=== PATIENT | male | born 1935 | race Caucasian/White ===

== ENCOUNTER 2018-07-02 08:46 | Inpatient (IN) | payer OTHER, MEDICARE ==
--- OUTSIDE RECORDS SUMMARY | 2018-07-02 08:49 | XMS REPORT | Encounter Summary ---
:1935 Author Reason for Visit Medical Complaint Instructions 1. Cough cough: care instructions 2. Chill rapid flu (A+B) 3. Nasal discharge 4. Fatigue 5. Elevated blood-pressure reading without diagnosis of hypertension Discussion Note: None recorded. Plan of Care Patient Instructions Increase fluid; rest. Tylenol as needed for fever or pain. Increase exposure to moist air from humidifier or hot shower. Seek care if no improvement in 3-4 days or sooner for worsening. See care instructions Reminders Provider Appointments None recorded. Lab Rapid Flu 06/28/2018 [facility] (A+B) Referral None recorded. Procedures None recorded. Surgeries None recorded. Imaging None recorded. Medications Name Start Date Asprin Ec Low Dose 81 mg tablet,delayed release Take 1 tablet every day by oral route. Coreg 6.25 mg tablet Take 1 tablet twice a day by oral route. Lipitor 20 mg tablet Take 1 tablet every day by oral route. warfarin Medications Administered None recorded. Vitals Height Weight BMI Blood Pressure 6 ft 2 in 170 lbs 21.8 kg/m2 126/64 mm[Hg] Lab Results Date Name Specimen Result Interpretation Description Value Range Status Address Rapid Flu Influenza a negative [facility]: (A+B) [address] [place] [address] Influenza B negative [facility]: [address] [place] [address] Allergies Code Code System Name Reaction Severity Status Onset NKDA Problems Name Status Onset Date Source Hypercholesterolemia Active 06/28/2018 Procedures None recorded. Vaccine List Vaccine Type influenza, injectable, quadrivalent 12/28/2017 Social History Smoking Status Never Smoker Past Encounters 06/28/2018 Cough; Chill; Nasal Discharge; Fatigue; Elevated Blood-pressure Reading without Diagnosis of Hypertension Phuong Gonsalez [facility]-C: [id number] [place] [address], Ph. [phone] History of Present Illness Cough Reported By: Patient HPI: Location: chest. Quality: productive cough. Duration: <1 days. Severity: mild. Onset/Timing: sudden. Context: no sick contacts, no foreign travel, non-smoker; travelled from [place] yesterday (drove 12 hours). Modifying factors: OTC medication. Associated Symptoms: no wheezing, no sore throat, no vomiting, no diarrhea, no rash, no nausea, no muscle aches, no headache, shortness of breath, fatigue, fever/chills Review of Systems Basic Reported By: Patient Eyes: Eyes: no eye complaints Fypm-Gxmj-Qdsmg-Throat: Ears: no ear complaints. Nose: nose/sinus problems. Mouth/Throat: no sore throat, no bleeding gums, no mouth complaints, no teeth problems Cardiovascular: Cardiovascular: no chest pain Gastrointestinal: Gastrointestinal: no abdominal pain Musculoskeletal: Musculoskeletal: no muscle aches, no muscle weakness, no arthralgias/joint pain, no back pain Neurologic: Neurologic: no loss of consciousness, weakness, dizziness Physical Exam Adult Basic, Adult Male Complete Reported By: Patient Constitutional: General Appearance: well-nourished, well-developed. Level of Distress: mild distress. Ambulation: limited ambulation Psychiatric: Mental Status: active and alert. Orientation: to time, to place, to person Eyes: Lids and Conjunctivae: non-injected, no discharge. EOM: EOMI. Vision: acuity grossly intact Myu-Lxwv-Qnwvq-Throat: Ears: no lesions on external ear, no outer ear tenderness, EACs clear, TMs clear, TM mobility normal. Hearing: no hearing loss. Nose: no lesions on external nose, nares patent, no septal deviation, nasal passages clear, no sinus tenderness, nasal discharge--rhinorrhea. Lips, Teeth, and Gums: no mouth or lip ulcers, no bleeding gums. Oropharynx: moist mucous membranes, no erythema, no exudates, tonsils not enlarged Neck: Neck: supple, trachea midline, no masses, FROM. Lymph Nodes: no cervical LAD, no supraclavicular LAD. Thyroid: no enlargement, non-tender Lungs: Respiratory effort: no dyspnea, no tachypnea, no use of accessory muscles, no intercostal retractions. Auscultation: breath sounds normal, good air movement Cardiovascular: Heart Auscultation: RRR Musculoskeletal:: Motor Strength and Tone: normal motor strength, normal tone, normal. Joints, Bones, and Muscles: normal movement of all extremities Neurologic: Gait and Station: normal gait Skin: Inspection and palpation: no rash Back: Thoracolumbar Appearance: normal curvature Abdomen: Inspection and Palpation: soft, no guarding
--- OUTSIDE RECORDS SUMMARY | 2018-07-02 08:49 | XMS REPORT | Continuity of Care Document ---
:1935 Author Organization Interface Problems Problem Status Onset Classification Date Comments Source Date Reported Nasal discharge Diagnosis 06/28/2018 [facility] 019 Elevated Diagnosis 06/28/2018 [facility] blood-pressure reading 019 without diagnosis of hypertension Fatigue Diagnosis 06/28/2018 [facility] 019 Chill Diagnosis 06/28/2018 [facility] 019 Cough Diagnosis 06/28/2018 [facility] 019 Hypercholesterolemia Problem 06/28/2018 [facility] 019 Medications Medication Details Route Status Patient Ordering Order Source Instructions Provider Date Asprin Ec Low Asprin Ec Active [facility] Dose 81 mg Low Dose 81 tablet,delayed mg release tablet,gricelda yed release Take 1 tablet every day by oral route. carvedilol 6.25 Coreg 6.25 Active [facility] MG Oral Tablet mg tablet [Coreg] Take 1 tablet twice a day by oral route. atorvastatin 20 Lipitor 20 Active [facility] MG Oral Tablet mg tablet [Lipitor] Take 1 tablet every day by oral route. warfarin warfarin Active [facility] Allergies, Adverse Reactions, Alerts Substance Category Reaction Severity Reaction Status Date Comments Source type Reported Immunizations Immunization Date Given Site Status Last Comments Source Updated influenza, 12/28/2017 completed [facility] injectable, quadrivalent Results Order Results Value Reference Date Interpretation Comments Source Name Range Influenza A negative 06/28/ [facility] 2018 Influenza B negative 06/28/ [facility] 2018 Vital Signs Vital Sign Value Date Comments Source Diastolic (mm Hg) 64 06/28/2018 [facility] Height 74 06/28/2018 [facility] Systolic (mm Hg) 126 06/28/2018 [facility] Weight 170 06/28/2018 [facility] Encounters Location Location Encounter Encounter Reason Attending ADM DC Status Source Details Type Number For Provider Date Date Visit [place] - Phuong [id number] Phuong 06/28 [facility] Robin Gonsalez-[id number] Wallace /2019 - [facility] [employer]-C: [id number] [place] [address] , Ph. Procedures Procedure Code Date Perfomer Comments Source
[2018-07-02] MEDS ORDERED: NA CHLORIDE 0.9% 2,000 ML ONE (09:22)
[2018-07-02 09:25] LABS: Blood Gas Oxyhemoglobin 94.6 % (94-97); Blood O2 Saturation 97.4 % (92-98.5)
[2018-07-02] MEDS ORDERED: PIPER/TAZO/NS 3.375gm 3.375 GM/100 ML BAG ONE (09:27)
[2018-07-02 09:28] LABS: Absolute Lymphocytes (CBC) 0.5 K/uL (0.7-4.9); Absolute Monocytes 1.3 K/uL (0.1-1.3); Absolute Neutrophil 5.9 K/uL (1.8-8.0); Basophils % 0.1 % (0-1.3); Eosinophils % 0.1 % (0-4.4); Hematocrit 35.7 % (39.6-49.0); Monocytes % 17.2 % (3.3-12.3); RBC Red Blood Cell Count 3.73 M/uL (4.33-5.43)
[2018-07-02 09:43] LABS: Protime INR 4.55
[2018-07-02 09:47] LABS: ALT/SGPT 51 U/L (12-78); AST/SGOT 69 U/L (15-37); Albumin 2.8 g/dL (3.4-5.0); Alkaline Phosphatase 101 U/L (45-117); BUN Blood Urea Nitrogen 37 mg/dL (7-18); Bicarbonate 25 mmol/L (21-32); Bilirubin Total 2.1 mg/dL (0.2-1.0); CKMB Creatine Kinase MB < 1.0 ng/mL (0.3-3.6); Creatine Phosphokinase 79 U/L (39-308); Glucose Level 133 mg/dL (74-106); Lipase 97 U/L (73-393); Potassium 4.2 mmol/L (3.5-5.1); Protein, Total 7.6 g/dL (6.4-8.2); Sodium Level 134 mmol/L (136-145); Troponin (Emerg Dept Use Only) 0.03 ng/mL (0.0-0.045)
--- NOTE | 2018-07-02 09:52 | ER ---
Nurse's Notes [facility] Name: Akira Carrasco Age: 83 yrs Sex: Male : 1935 Arrival Date: 07/02/2018 Time: 08:50 Bed 5 Private MD: Diagnosis: Pneumonia due to other specified bacteria;Sepsis;Acute respiratory failure with hypoxia Presentation: 07/02 09:03 Presenting complaint: Patient states: Productive cough with brownish sputum, malaise, hb and SOB x 4-5 days. Denies fever. Transition of care: patient was not received from another setting of care. Onset of symptoms was June 28, 2018. Risk Assessment: Do you want to hurt yourself or someone else? Patient reports no desire to harm self or others. Care prior to arrival: None. 09:03 Method Of Arrival: Wheelchair hb 09:03 Acuity: SALAZAR 2 hb 09:03 Initial Sepsis Screen: Does the patient meet any 2 criteria? RR > 20 per min. HR > 90 hj bpm. Yes Does the patient have a suspected source of infection? Yes: Productive cough/pneumonia. Triage Assessment: 09:15 General: Appears in no apparent distress. uncomfortable, Behavior is cooperative, hj appropriate for age, anxious. Pain: Denies pain. 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 - Social history:: Smoking status: Patient/guardian denies using tobacco. - Ebola Screening: : No symptoms or risks identified at this time. Screenin:05 Abuse screen: Denies threats or abuse. Denies injuries from another. Nutritional hb screening: No deficits noted. Tuberculosis screening: No symptoms or risk factors identified. Fall Risk Total Siegel Fall Scale indicates Low Risk Score (25-44 pts). Fall prevention measures have been instituted. Side Rails Up X 2 Frequent Obs/Assesments occuring Family Present and informed to notify staff if they need to leave bedside As available Patient and Family Educated on Fall Prevention Program and strategies. Assessment: 09:03 General: Appears distressed, uncomfortable, Behavior is cooperative, appropriate for hj age, anxious. Pain: Denies pain. Neuro: Level of Consciousness is awake, alert, obeys commands, Oriented to person, place, time, situation, Appropriate for age. Cardiovascular: Capillary refill < 3 seconds Patient's skin is warm and dry. Respiratory: Airway is patent Respiratory effort is labored, Respiratory pattern is tachypnea Breath sounds are diminished. GI: No signs and/or symptoms were reported involving the gastrointestinal system. : No signs and/or symptoms were reported regarding the genitourinary system. EENT: No signs and/or symptoms were reported regarding the EENT system. Derm: No signs and/or symptoms reported regarding the dermatologic system. Musculoskeletal: No signs and/or symptoms reported regarding the musculoskeletal system. 09:15 Reassessment: Patient and/or family updated on plan of care and expected duration. Pain hj level reassessed. Patient is alert, oriented x 3, equal unlabored respirations, skin warm/dry/pink. RT at bedside for BIPAP and ABG:. 09:30 Reassessment: Patient and/or family updated on plan of care and expected duration. Pain hj level reassessed. Patient is alert, oriented x 3, equal unlabored respirations, skin warm/dry/pink. awaiting lab results and POC; family at bedside updated with results;. 10:00 Reassessment: Patient and/or family updated on plan of care and expected duration. Pain aj1 level reassessed. General: Appears distressed, uncomfortable, Behavior is cooperative, anxious. Pain: Denies pain. Neuro: Level of Consciousness is awake, alert, obeys commands, Oriented to person, place, time, situation. Cardiovascular: Denies chest pain, Heart tones S1 S2 present Patient's skin is warm and dry. Rhythm is ventricular pacer. Respiratory: Reports shortness of breath at rest cough that is productive, Airway is patent Respiratory effort is even, labored, Respiratory pattern is regular, symmetrical, Breath sounds are diminished in left posterior lower lobe, right posterior middle lobe and right posterior lower lobe. GI: No signs and/or symptoms were reported involving the gastrointestinal system. : No signs and/or symptoms were reported regarding the genitourinary system. EENT: No signs and/or symptoms were reported regarding the EENT system. Derm: No signs and/or symptoms reported regarding the dermatologic system. Skin is pale, Perioral cyanosis noted. Musculoskeletal: No signs and/or symptoms reported regarding the musculoskeletal system. 11:00 Reassessment: Patient and/or family updated on plan of care and expected duration. Pain aj1 level reassessed. Patient denies pain at this time. General: Appears uncomfortable, ill, Behavior is cooperative, appropriate for age, anxious. Pain: Denies pain. Neuro: Level of Consciousness is awake, alert, obeys commands, Oriented to person, place, time, situation. Cardiovascular: Patient's skin is warm and dry. Rhythm is ventricular pacer. Respiratory: Airway is patent Respiratory effort is even, labored, Respiratory pattern is regular, symmetrical. Derm: Skin is pale, perioral cyanosis noted. 11:58 Reassessment: Notified RHONDA Mccain that patient's O2 sats 93-94% on Bi-PAP. Order aj1 received to increase FiO2 to 40%. RT paged. 12:00 Reassessment: Patient and/or family updated on plan of care and expected duration. Pain aj1 level reassessed. General: Appears uncomfortable, ill, Behavior is cooperative, anxious. Pain: Denies pain. Neuro: Level of Consciousness is awake, alert, obeys commands, Oriented to person, place, time, situation. Cardiovascular: Heart tones S1 S2 present Patient's skin is warm and dry. Rhythm is ventricular pacer. Respiratory: Reports shortness of breath Reports that he is feeling less short of breath than when he arrived to the ER Airway is patent Respiratory effort is even, labored, Respiratory pattern is regular, symmetrical, Breath sounds are diminished in left posterior lower lobe, right posterior middle lobe and right posterior lower lobe. 12:15 Reassessment: Patient switched to venti-mask \T\50% by RT, patient is maintaining O2 sat aj1 95-99% on venti-mask at this time. Patient reports that he feels much better on the mask than he did on Bi-PAP. Will continue to monitor. 13:00 Reassessment: Patient and/or family updated on plan of care and expected duration. Pain aj1 level reassessed. General: Appears uncomfortable, Behavior is cooperative, anxious. Pain: Denies pain. Neuro: Level of Consciousness is awake, alert, obeys commands, Oriented to person, place, time, situation. Cardiovascular: Patient's skin is warm and dry. Rhythm is ventricular pacer. Respiratory: Airway is patent Respiratory effort is even, labored, Respiratory pattern is regular, symmetrical. Vital Signs: 09:02 BP 140 / 77; Pulse 64; Resp 34; Temp 99.2(O); Pulse Ox 79% on R/A; Pain 0/10; hb 09:03 Weight 77.11 kg; Height 6 ft. 2 in. (187.96 cm); hb 09:24 BP 157 / 71; Pulse 60; Resp 18; Pulse Ox 99% on BiPAP; hj 10:00 BP 124 / 62; Pulse 61; Resp 33; Pulse Ox 99% on BiPAP; aj1 10:30 BP 134 / 76; Pulse 60; Resp 17; Pulse Ox 99% on BiPAP; aj1 11:00 BP 130 / 64; Pulse 60; Resp 26; Pulse Ox 96% on BiPAP; aj1 11:30 BP 135 / 68; Pulse 60; Resp 29; Pulse Ox 94% on BiPAP; aj1 12:00 BP 134 / 56; Pulse 60; Resp 28; Pulse Ox 95% on 50% Venturi mask; aj1 12:30 BP 162 / 85; Pulse 60; Resp 23; Pulse Ox 98% on 50% Venturi mask; aj1 13:00 BP 160 / 87; Pulse 60; Resp 23; Temp 99.2; Pulse Ox 97% on 50% Venturi mask; aj1 13:30 BP 157 / 71; Pulse 68; Resp 24; Pulse Ox 96% on 50% Venturi mask; aj1 09:03 Body Mass Index 21.83 (77.11 kg, 187.96 cm) ED Course: 08:50 Patient arrived in ED. as 08:56 Topher Lauren PA is PHCP. jr8 08:56 Aidan Huerta MD is Attending Physician. jr8 09:03 Patient has correct armband on for positive identification. Placed in gown. Bed in low hj position. Call light in reach. Side rails up X 1. Adult w/ patient. 09:04 Triage completed. hb 09:05 Arm band placed on. hb 09:08 Chung Story, RN is Primary Nurse. hj 09:09 Initial lab(s) drawn, by me, sent to lab. Inserted saline lock: 20 gauge in right upper jl7 arm, using aseptic technique. Blood collected. 09:14 Notified primary nurse of point of care results. em1 09:17 EKG done, by weld technician. reviewed by Topher ELLIS. at1 09:29 X-ray completed. Portable x-ray completed in exam room. Patient tolerated procedure sw well. 09:30 Chest Single View XRAY In Process Unspecified. EDMS 09:51 Kang Begum DO is Hospitalizing Provider. jr8 13:49 Report given to ИВАН Cifuentes in ICU. aj1 13:49 Patient admitted, IV remains in place. aj1 Administered Medications: 09:18 Drug: NS 0.9% (30 ml/kg) 30 ml/kg Route: IV; Rate: bolus; Site: right upper arm; hj 09:20 Drug: Zosyn 3.375 grams Route: IVPB; Infused Over: 60 mins; Site: right upper arm; hj Point of Care Testing: Blood Glucose: 09:14 Blood Glucose: 154 mg/dL; em1 Ranges: Outcome: 09:51 Decision to Hospitalize by Provider. jr8 14:00 Patient left the ED. aj1 Signatures: Dispatcher [employer] EDMS Myriam Lemos RN RN aj1 Gianna Thakkar Eric em1 Topher Lauren PA PA jr8 Belia Kramer, account manager sales representative EKG Tat1 Tiara Montilla Henry, RN RN Tali Celestin RN RN Frances Pickering RN RN jl7 Corrections: (The following items were deleted from the chart) 09:06 09:02 BP 140 / 77; Pulse 64bpm; Resp 26bpm; Pulse Ox 79% RA; Temp 99.2F Oral; Pain hb 0/10; hb
--- NOTE | 2018-07-02 09:52 | EDPHYS ---
Physician Documentation [facility] Name: Akira Carrasco Age: 83 yrs Sex: Male : 1935 Arrival Date: 07/02/2018 Time: 08:50 Bed 5 Private MD: ED Physician Aidan Huerta HPI: 07/02 09:46 This 83 yrs old Male presents to ER via Wheelchair with complaints of jr8 Shortness of breath. 09:46 The patient has shortness of breath at rest. Onset: The symptoms/episode began/occurred jr8 gradually, 1 week(s) ago, and became worse today, and became persistent today. Duration: The symptoms are continuous, and are markedly worse than the original presentation. The patient's shortness of breath is aggravated by talking, walking. Associated signs and symptoms: Pertinent positives: productive cough. Severity of symptoms: At their worst the symptoms were moderate in the emergency department the symptoms are unchanged. The patient has not experienced similar symptoms in the past. The patient has not recently seen a physician. 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 - Social history:: Smoking status: Patient/guardian denies using tobacco. - Ebola Screening: : No symptoms or risks identified at this time. ROS: 09:46 Eyes: Negative for injury, pain, redness, and discharge, ENT: Negative for injury, jr8 pain, and discharge, Neck: Negative for injury, pain, and swelling, Cardiovascular: Negative for chest pain, palpitations, and edema, Abdomen/GI: Negative for abdominal pain, nausea, vomiting, diarrhea, and constipation, Back: Negative for injury and pain, MS/Extremity: Negative for injury and deformity, Skin: Negative for injury, rash, and discoloration, Neuro: Negative for headache, weakness, numbness, tingling, and seizure. 09:46 Respiratory: Positive for cough, dyspnea on exertion, shortness of breath. Exam: 09:46 Eyes: Pupils equal round and reactive to light, extra-ocular motions intact. Lids and jr8 lashes normal. Conjunctiva and sclera are non-icteric and not injected. Cornea within normal limits. Periorbital areas with no swelling, redness, or edema. ENT: Nares patent. No nasal discharge, no septal abnormalities noted. Tympanic membranes are normal and external auditory canals are clear. Oropharynx with no redness, swelling, or masses, exudates, or evidence of obstruction, uvula midline. Mucous membranes moist. Neck: Trachea midline, no thyromegaly or masses palpated, and no cervical lymphadenopathy. Supple, full range of motion without nuchal rigidity, or vertebral point tenderness. No Meningismus. Cardiovascular: Regular rate and rhythm with a normal S1 and S2. No gallops, murmurs, or rubs. Normal PMI, no JVD. No pulse deficits. Abdomen/GI: Soft, non-tender, with normal bowel sounds. No distension or tympany. No guarding or rebound. No evidence of tenderness throughout. Back: No spinal tenderness. No costovertebral tenderness. Full range of motion. Skin: Warm, dry with normal turgor. Normal color with no rashes, no lesions, and no evidence of cellulitis. MS/ Extremity: Pulses equal, no cyanosis. Neurovascular intact. Full, normal range of motion. Neuro: Awake and alert, GCS 15, oriented to person, place, time, and situation. Cranial nerves II-XII grossly intact. Motor strength 5/5 in all extremities. Sensory grossly intact. Cerebellar exam normal. Normal gait. 09:46 Respiratory: moderate respiratory distress is noted, Respirations: labored breathing, tachypnea, Breath sounds: decreased breath sounds, that are mild, are located in both bases. 09:49 ECG was reviewed by the Attending Physician. jr8 Vital Signs: 09:02 BP 140 / 77; Pulse 64; Resp 34; Temp 99.2(O); Pulse Ox 79% on R/A; Pain 0/10; hb 09:03 Weight 77.11 kg; Height 6 ft. 2 in. (187.96 cm); hb 09:24 BP 157 / 71; Pulse 60; Resp 18; Pulse Ox 99% on BiPAP; hj 10:00 BP 124 / 62; Pulse 61; Resp 33; Pulse Ox 99% on BiPAP; aj1 10:30 BP 134 / 76; Pulse 60; Resp 17; Pulse Ox 99% on BiPAP; aj1 11:00 BP 130 / 64; Pulse 60; Resp 26; Pulse Ox 96% on BiPAP; aj1 11:30 BP 135 / 68; Pulse 60; Resp 29; Pulse Ox 94% on BiPAP; aj1 12:00 BP 134 / 56; Pulse 60; Resp 28; Pulse Ox 95% on 50% Venturi mask; aj1 12:30 BP 162 / 85; Pulse 60; Resp 23; Pulse Ox 98% on 50% Venturi mask; aj1 13:00 BP 160 / 87; Pulse 60; Resp 23; Temp 99.2; Pulse Ox 97% on 50% Venturi mask; aj1 13:30 BP 157 / 71; Pulse 68; Resp 24; Pulse Ox 96% on 50% Venturi mask; aj1 09:03 Body Mass Index 21.83 (77.11 kg, 187.96 cm) hb MDM: 09:07 Patient medically screened. jr8 09:46 Differential diagnosis: Bronchitis CHF exacerbation, Chronic Obstructive Pulmonary jr8 Disease Myocardial Infarction pneumonia, Pneumothorax pulmonary edema, Pulmonary Embolism Sepsis Unstable Angina. Data reviewed: vital signs, nurses notes, lab test result(s), EKG, radiologic studies, plain films. 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 Interpretation: hypoxia. Plan: O2 by Mask applied. Test interpretation: by ED physician or midlevel provider: ECG, plain radiologic studies, Pneumonia present . Counseling: I had a detailed discussion with the patient and/or guardian regarding: the historical points, exam findings, and any diagnostic results supporting the discharge/admit diagnosis, lab results, radiology results, the need for further work-up and treatment in the hospital. 07/02 09:07 Order name: ABG; Complete Time: 10:01 07/02 09:07 Order name: Basic Metabolic Panel; Complete Time: 09:52 07/02 09:07 Order name: Blood Culture Adult (2) 07/02 09:07 Order name: CBC with Diff; Complete Time: 11:34 07/02 09:07 Order name: Ckmb; Complete Time: 09:52 07/02 09:07 Order name: CPK; Complete Time: 09:52 07/02 09:07 Order name: Lactate; Complete Time: 09:52 07/02 09:07 Order name: LFT's; Complete Time: 09:[address] [facility] 07/02 09:07 Order name: Lipase; Complete Time: 09:[address] [facility] 07/02 09:07 Order name: Procalcitonin; Complete Time: 10:[address] [facility] 07/02 09:07 Order name: Protime (+inr); Complete Time: 09:[address] [facility] 07/02 09:07 Order name: Ptt, Activated; Complete Time: 09:[address] [facility] 07/02 09:07 Order name: Troponin (emerg Dept Use Only); Complete Time: 09:[address] [facility] 07/02 09:07 Order name: Urine Microscopic Only; Complete Time: 13:[address] [facility] 07/02 09:07 Order name: Chest Single View XRAY; Complete Time: 10:[address] [facility] 07/02 09:07 Order name: Accucheck; Complete Time: 09:[address] [facility] 07/02 09:07 Order name: Cardiac monitoring; Complete Time: 09:[address] [facility] 07/02 09:07 Order name: BIPAP [facility] 07/02 09:15 Order name: Glucose, Ancillary Testing; Complete Time: 09:23 [facility] 07/02 11:04 Order name: Manual Differential; Complete Time: 11:34 [facility] 07/02 12:52 Order name: Sputum Culture [facility][1] 07/02 12:52 Order name: Urine Culture [facility][1] 07/02 13:04 Order name: Urine Dipstick--Ancillary (enter results) 07/02 13:21 Order name: Urine Dipstick-Ancillary; Complete Time: 13:23 [facility] 07/02 13:25 Order name: Sputum Culture [facility] 07/02 13:30 Order name: Blood Culture [facility] 07/02 13:31 Order name: Urine Culture [facility] 07/02 13:43 Order name: Lactate Sepsis 2 HR Follow-up; Complete Time: 13:44 [facility] 07/02 09:07 Order name: EKG - Nurse/Tech; Complete Time: 09:[address] [facility] 07/02 09:07 Order name: IV Saline Lock - Large Bore; Complete Time: 09:[address] [facility] 07/02 09:07 Order name: Labs collected and sent; Complete Time: 09:[address] [facility] 07/02 09:07 Order name: O2 Per Protocol; Complete Time: 09:[address] [facility] 07/02 09:07 Order name: O2 Sat Monitoring; Complete Time: :13 8 EC:49 Rate is 60 beats/min. Rhythm is regular, Paced. Right axis deviation noted. QRS jr8 interval is prolonged at 136 msec. QT interval is normal at 432 msec. T waves are Normal. No ST changes noted. Clinical impression: No evidence of ischemia. Interpreted by me. Reviewed by me. Administered Medications: :18 Drug: NS 0.9% (30 ml/kg) 30 ml/kg Route: IV; Rate: bolus; Site: right upper arm; 09:20 Drug: Zosyn 3.375 grams Route: IVPB; Infused Over: 60 mins; Site: right upper arm; Point of Care Testing: Blood Glucose: :14 Blood Glucose: 154 mg/dL; em1 Ranges: Critical Glucose Levels:Adult <50 mg/dl or >400 mg/dl <40 mg/dl or >180 mg/dl Disposition: 14:28 Co-signature as Attending Physician, Aidan Huerta MD I agree with the assessment and kdr plan of care. Disposition: 07/02/18 09:51 Hospitalization ordered by Kang Begum for Inpatient Admission. Preliminary diagnosis are Pneumonia due to other specified bacteria, Sepsis, Acute respiratory failure with hypoxia. - Bed requested for Intensive Care Unit. - Status is Inpatient Admission. aj1 - Condition is Fair. - Problem is new. - Symptoms have improved. UTI on Admission? No Signatures: Dispatcher [employer] EDMS Myriam Lemos RN RN aj1 Aidan Huerta MD MD [facility] Topher Lauren PA PA jr8 Chung Story RN RN Tali Celestin RN RN Araseli Canchola RN RN df Corrections: (The following items were deleted from the chart) 13:02 09:51 Hospitalization Ordered by Kang Begum DO for Inpatient Admission. Preliminary df diagnosis is Pneumonia due to other specified bacteria; Sepsis; Acute respiratory failure with hypoxia. Bed requested for Intensive Care Unit. Status is Inpatient Admission. Condition is Fair. Problem is new. Symptoms have improved. UTI on Admission? No. jr8 14:00 13:02 07/02/2018 09:51 Hospitalization Ordered by Kang Begum DO for Inpatient aj Admission. Preliminary diagnosis is Pneumonia due to other specified bacteria; Sepsis; Acute respiratory failure with hypoxia. Bed requested for Intensive Care Unit. Status is Inpatient Admission. Condition is Fair. Problem is new. Symptoms have improved. UTI on Admission? No. df
--- NOTE | 2018-07-02 10:53 | RAD REPORT ---
EXAM DESCRIPTION: RAD - Chest Single View - 07/02/2018 9:40 am CLINICAL HISTORY: Productive cough, shortness of breath COMPARISON: October 2009 TECHNIQUE: AP portable chest image was obtained 0928 hours . FINDINGS: Lungs are fibrotic as a baseline. Airspace opacification is present in the lateral mid rig ht lung field and to a greater extent right lung base. In the acute clinical setting this is most lik haritha pneumonia. No focal infiltrate in the left lung field. Trachea is midline. Mild cardiomegaly is p resent without acute failure or volume overload suspected. No measurable pleural effusion and no pneu mothorax. No acute bony abnormality seen. No acute aortic finding. Pacemaker remains in place. IMPRESSION: Acute pneumonia in the lateral right midlung field and right lung base.
[2018-07-02 11:03] LABS: Toxic Granulation PRESENT
[2018-07-02 11:04] LABS: Blood Morphology Comment NOT SEEN (NOT SEEN); Platelet Estimate ADEQ
[2018-07-02] MEDS ORDERED: IPRATROPIUM BROM 0.5MG/2.5ML NEB PRN ×2 (12:53→15:00)
[2018-07-02] MEDS ORDERED: ACETAMINOPHEN 500 MG TAB PO PRN (12:53)
[2018-07-02 13:21] LABS: Urine Blood TRACE (NEG); Urine Glucose NEGATIVE (NEG); Urine Protein 2+ (NEG); Urine pH 5.5 (5.0-7.0)
[2018-07-02 13:30] LABS: Urine Bacteria NONE SEEN /HPF (NONE SEEN); Urine RBC NONE SEEN /HPF (NONE SEEN)
[2018-07-02 13:31] LABS: Urine Amorphous Sediment 1+ /HPF (NONE SEEN); Urine Crystals Unidentified FEW (NONE SEEN); Urine Culture Reflex Order NOT NEEDED
--- NOTE | 2018-07-02 14:03 | P.HP ---
Certification for Inpatient Patient admitted to: Inpatient With expected LOS: >2 Midnights Patient will require the following post-hospital care: None Practitioner: I am a practitioner with admitting privileges, knowledge of patient current condition, hospital course, and medical plan of care. Services: Services provided to patient in accordance with Admission requirements found in Title 42 Section 412.3 of the Code of Federal Regulations Patient History Date of Service: 07/02/18 Primary Care Provider: Dr. Rodriges-[place], [place] Reason for admission: Shortness of breath History of Present Illness: 83-year-old male presented to the emergency room with increased cough , congestion and shortness of breath. Patient is originally from [place]. He is here to visit family. Over the past week patient has been having increasing cough, congestion and fatigue. He has had poor oral intake. has noted some altered mental status changes. Today his shortness of breath got worse. He was brought in for further evaluation. Patient with prior history of mitral valve replacement on Coumadin, atrial fibrillation with pacemaker, CAD with prior CABG x1 vessel, hyperlipidemia. In the ER patient was in severe respiratory distress. Patient required immediate BiPAP. Patient given IV fluids. Patient with mild elevation in temperature. White count 7.7, hemoglobin 12. Lactic acid and pro calcitonin elevated. Troponin within normal range. Sodium 134, potassium 4.2, BUN of 37, creatinine 1.19 with a GFR 58. Glucose 133. Chest x-ray showed right middle and lower lobe pneumonia. Patient was admitted to ICU for further evaluation and treatment. When I saw the patient in the ER, he remained stable on BiPAP. He appeared improved with treatment. Patient appears compliant with his medication. Patient with multiple cardiac risk factors. Allergies No Known Allergies Allergy (Unverified 07/02/18 10:24) Home medications list reviewed: Yes - Past Medical/Surgical History Diabetic: No -: Mitral valve replacement on Coumadin -: Atrial fibrillation with pacemaker -: CAD with prior CABG x1 vessel -: Hypertension -: Hyperlipidemia -: History of iliac abdominal aortic aneurysm stent -: CABG x1 vessel -: Stent to iliac for AAA -: Cholecystectomy -: Appendectomy -: Mitral valve replacement, mechanical Psychosocial/ Personal History: Patient is - Family History Family History: Reviewed- Non-Contributory - Social History Smoking Status: Never smoker Alcohol use: No CD- Drugs: No Caffeine use: No Place of Residence: Home Review of Systems General: Fever, Chills, Weakness, Malaise Eyes: Unremarkable ENT: As per HPI Respiratory: Cough, Shortness of Breath, SOB with Excertion, As per HPI Cardiovascular: As per HPI Gastrointestinal: Unremarkable Genitourinary: Unremarkable Musculoskeletal: Unremarkable Integumentary: Unremarkable Neurological: As per HPI Lymphatics: Unremarkable Physical Examination - Physical Exam General: Alert, In no apparent distress, Oriented x3, Cooperative HEENT: Atraumatic, Normocephalic, PERRLA, Mucous membr. moist/pink Neck: Supple Respiratory: Crackles/rales (Bilateral), Other (Poor inspiration/expiration. Patient currently on BiPAP stable.) Cardiovascular: Normal pulses, Regular rate/rhythm Gastrointestinal: Normal bowel sounds, Soft and benign, Non-distended, No tenderness, No masses, No rebound, No guarding Musculoskeletal: No contractures, No erythema, No tenderness, No warmth Integumentary: No tenderness/swelling, No erythema, No warmth, No cyanosis Neurological: Normal speech, Normal strength at 5/5 x4 extr, Normal tone, Normal affect - Studies Laboratory Data (last 24 hrs) 07/02/18 09:17: PT 50.6 H, INR 4.55 H*, APTT 43.3 H 07/02/18 09:17: WBC 7.7, Hgb 12.2 L, Hct 35.7 L, Plt Count 179 07/02/18 09:17: Sodium 134 L, Potassium 4.2, BUN 37 H, Creatinine 1.19, Glucose 133 H, Total Bilirubin 2.1 H, AST 69 H, ALT 51, Alkaline Phosphatase 101, Lipase 97 Assessment and Plan - Plan Impression: Acute respiratory failure with hypoxia secondary to right middle lobe and lower lobe pneumonia and possible sepsis Acute renal injury likely dehydration Chronic atrial fibrillation with pacemaker CAD with prior CABG x1 vessel History of mechanical mitral valve replacement on Coumadin Chronic anti coagulation therapy-Coumadin, supratherapeutic Hyperlipidemia Plan: Acute respiratory failure with hypoxia secondary to right middle lobe and lower lobe pneumonia and possible sepsis: Patient will be admitted to ICU. Will continue with BiPAP and wean off. Maintain sats above 90%. Respiratory consulted. Patient started on IV Zosyn. Will continue with antibiotic therapy. Await urine, sputum, and blood culture. Will monitor chest x-ray. Pulmonology consulted to further evaluate and treat. INR supratherapeutic on Coumadin. Will hold DVT prophylaxis. Continue IV fluids. Will monitor closely. Sepsis protocol in place. Cardiology also consulted due to his chronic cardiac issues. Will obtain echocardiogram. Continue to monitor and reassess. Acute renal injury likely dehydration: Continue IV fluids. Will monitor and adjust appropriately. Chronic atrial fibrillation with pacemaker: Patient now all paced. Overall stable. CAD with prior CABG x1 vessel: Continue with aspirin. History of mechanical mitral valve replacement on Coumadin: Will hold Coumadin at this time due to supratherapeutic INR. Maintain INR between 2.5 and 3.5. Will continue to hold Coumadin if Coumadin above 3.5. Chronic anti coagulation therapy-Coumadin, supratherapeutic: As above Hyperlipidemia: Continue with his medication. Discharge Plan: Home Plan to discharge in: Greater than 2 days - Advance Directives Does patient have a Living Will: No Does patient have a Durable POA for Healthcare: No - Code Status/Comfort Care Code Status Assessed: Yes (Patient full code.) Time Spent Managing Pts Care (In Minutes): 55
[2018-07-02] MEDS: BENZONATATE 100 MG CAP PO PRN ×2 (15:00→23:03)
[2018-07-02] MEDS: NA CHLORIDE 0.9% 1,000 ML IV SCH (15:00)
--- NOTE | 2018-07-02 15:27 | ECHO ---
HEIGHT: 6 ft 2 in WEIGHT: 174 lb 5 oz DATE OF STUDY: 07/02/[address]: Kang Begum DO 2-DIMENSIONAL: YES M.MODE: YES DOPPLER: YES COLOR FLOW: YES TDS: PORTABLE: DEFINITY: BUBBLE STUDY: DIAGNOSIS: HISTORY OF CAD/CABG/MV REPAIR/ATRIAL FIBRILLATION CARDIAC HISTORY: CATHERIZATION: YES SURGERY: YES PROSTHETIC VALVE: YES PACEMAKER: YES MEASUREMENTS (cm) DIASTOLIC (NORMALS) SYSTOLIC (NORMALS) IVSd 1.4 (0.6-1.2) LA Diam 6.5 (1.9-4.0) LVEF 73% LVIDd 4.5 (3.5-5.7) LVIDs 2.6 (2.0-3.5) %FS 42% LVPWd 1.2 (0.6-1.2) Ao Diam 2.9 (2.0-3.7) 2 DIMENSIONAL ASSESSMENT: RIGHT ATRIUM: NORMAL LEFT ATRIUM: DILATED RIGHT VENTRICLE: PACEMAKER CATHETER LEFT VENTRICLE: LEFT VENTRICULAR HYPERTROPHY TRICUSPID VALVE: NORMAL MITRAL VALVE: MITRAL ANNULAR CALCIFICATION PULMONIC VALVE: NORMAL AORTIC VALVE: THREE LEAFLET SCLEROSIS PERICARDIAL EFFUSION: NONE AORTIC ROOT: NORMAL LEFT VENTRICULAR WALL MOTION: NORMAL DOPPLER/COLOR FLOW: MILD TO MODERATE AORTIC STENOSIS. PEAK/MEAN GRADIENT 32mmHg/ 16mmHg. ESTIMATED AORTIC VALVE AREA 1.6 CENTIMETERS SQUARED. MILD AORTIC REGURGIATION, MITRAL REGURGITATION, AND TRICUSPID REGURGITATION. 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 ESTIMATED RIGHT VENTRICULAR SYSTOLIC PRESSURE 60 mmHg. COMMENTS: NORMAL LEFT VENTRICULAR EJECTION FRACTION. DILATED LEFT ATRIUM. PACEMAKER CATHETER IN RIGHT VENTRICLE. LEFT VENTRICULAR HYPERTROPHY. MITRAL ANNULAR CALCIFICATION. MILD TO MODERATE AORTIC STENOSIS. MILD AORTIC REGURGITATION, MITRAL REGURGITATION, AND TRICUSPID REGURGITATION. 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 TECHNOLOGIST: MONTEZ MARINA
[2018-07-02] MEDS: WARFARIN SODIUM 5 MG TAB PO SCH (15:34)
[2018-07-02 15:53] LABS: Thyroid Stimulating Hormone 1.32 uIU/mL (0.360-3.740)
--- NOTE | 2018-07-02 16:12 | P.INFCA ---
Sepsis Focused Assessment - Sepsis Screen Result Severe Sepsis: Positive Septic Shock: Negative - Evaluation Current stage of sepsis: Severe sepsis - Vital Signs Reviewed: Yes Heart rate: 68 Blood Pressure: 157/71 Respiratory Rate: 24 - Examination Heart: Regular rate/rhythm Lungs: Crackles Peripheral pulses: 3+ Normal Peripheral pulse location: Radial Capillary refill: <2 Seconds Skin examination: Normal turgor (Patient improved since this am. Off BIPAP. On Ventimask. Continue with current plan of care. )
[2018-07-02] MEDS ORDERED: PIPER/TAZO/NS 3.375gm 3.375 GM/100 ML BAG IVPB SCH (17:00)
[2018-07-02] MEDS: PIPER/TAZO/NS 3.375gm 3.375 GM/100 ML BAG IVPB SCH (17:45)
[2018-07-02 17:57] LABS: CKMB Creatine Kinase MB 1.5 ng/mL (0.3-3.6); Troponin I 0.07 ng/mL (0.0-0.045)
[2018-07-02] MEDS: GUAIFENESIN 600 MG SA TAB PO SCH (20:41)
[2018-07-02] MEDS: CARVEDILOL 6.25 MG TAB PO SCH (20:42)
[2018-07-02] MEDS ORDERED: ATORVASTATIN 20 MG TAB PO SCH (21:00)
[2018-07-03] MEDS: PIPER/TAZO/NS 3.375gm 3.375 GM/100 ML BAG IVPB SCH ×3 (00:42→17:57)
[2018-07-03] MEDS: NA CHLORIDE 0.9% 1,000 ML IV SCH (00:43)
[2018-07-03 02:24] LABS: CKMB Creatine Kinase MB 1.7 ng/mL (0.3-3.6); Troponin I 0.03 ng/mL (0.0-0.045)
[2018-07-03 06:01] LABS: Absolute Lymphocytes (CBC) 0.5 K/uL (0.7-4.9); Absolute Monocytes 1.1 K/uL (0.1-1.3); Absolute Neutrophil 7.7 K/uL (1.8-8.0); Basophils % 0.1 % (0-1.3); Eosinophils % 0.1 % (0-4.4); Lymphocytes % 5.5 % (15.3-44.8); MPV 8.2 fL (7.6-11.3); Monocytes % 11.5 % (3.3-12.3); RBC Red Blood Cell Count 3.57 M/uL (4.33-5.43)
[2018-07-03 06:10] LABS: Magnesium 2.2 mg/dL (1.8-2.4); Potassium 3.8 mmol/L (3.5-5.1)
[2018-07-03 06:16] LABS: Protime INR 6.59
[2018-07-03] MEDS ORDERED: VITAMIN K (ADULT) 10 MG/ML IVP STA (06:22)
[2018-07-03] MEDS: BENZONATATE 100 MG CAP PO PRN ×3 (06:37→23:25)
--- NOTE | 2018-07-03 07:36 | RAD REPORT ---
EXAM DESCRIPTION: RAD - Chest Single View - 07/03/2018 6:39 am CLINICAL HISTORY: Pneumonia, sepsis COMPARISON: July 02 TECHNIQUE: AP portable chest image was obtained 0635 hours . FINDINGS: Patchy pneumonia changes in the right base and lateral mid right lung field have not uriostegui ed. Left lung field opacification stable as well. Cardiomegaly remains. Vasculature is similar or fra ctionally increased from comparison. Differential is minimal. No measurable pleural effusion and no p neumothorax. No acute bony abnormality seen. No acute aortic findings suspected. IMPRESSION: Cardiomegaly and lung parenchymal opacification not substantially different from compari son.
--- NOTE | 2018-07-03 08:42 | P.PN ---
Subjective Date of Service: 07/03/18 Primary Care Provider: Dr. Rodriges-[place], [place] Chief Complaint: Shortness of breath Subjective: Improving (Patient improving.) Physical Examination - Vital Signs Temperature: 97.3 F Blood Pressure: 142/61 Pulse: 71 Respirations: 15 Pulse Ox (%): 98 - Physical Exam General: Alert, In no apparent distress, Oriented x3, Cooperative, Other ( Patient currently on BiPAP.) HEENT: Atraumatic Neck: Supple Respiratory: Other (Better air movement today. Currently on BiPAP.) Cardiovascular: Normal pulses, Regular rate/rhythm Gastrointestinal: Normal bowel sounds, Soft and benign, Non-distended, No masses , No rebound, No guarding Integumentary: No erythema, No warmth, No cyanosis Neurological: Normal speech, Normal strength at 5/5 x4 extr, Normal tone, Normal affect - Studies Laboratory Data (last 24 hrs) 07/02/18 09:17: PT 50.6 H, INR 4.55 H*, APTT 43.3 H 07/02/18 09:17: WBC 7.7, Hgb 12.2 L, Hct 35.7 L, Plt Count 179 07/02/18 09:17: Sodium 134 L, Potassium 4.2, BUN 37 H, Creatinine 1.19, Glucose 133 H, Total Bilirubin 2.1 H, AST 69 H, ALT 51, Alkaline Phosphatase 101, Lipase 97 Medications List Reviewed: Yes Assessment & Plan Discharge Plan: Home Plan to discharge in: 72 Hours Physician Review Additional Text: Impression: Acute respiratory failure with hypoxia secondary to right middle lobe and lower lobe pneumonia and possible sepsis Acute renal injury likely dehydration Chronic atrial fibrillation with pacemaker CAD with prior CABG x1 vessel History of mechanical mitral valve replacement on Coumadin Chronic anti coagulation therapy-Coumadin, supratherapeutic Hyperlipidemia Plan: Acute respiratory failure with hypoxia secondary to right middle lobe and lower lobe pneumonia and possible sepsis: Patient remains in ICU. Will continue to wean off BiPAP. Will maintain sats above 90%. Continue IV antibiotic therapy. Chest x-ray of reviewed. Await urine, sputum and blood cultures. Case discussed with pulmonology yesterday. If improved will transition patient to the floor. Acute renal injury likely dehydration: Continue IV fluids. Will monitor and adjust appropriately. Chronic atrial fibrillation with pacemaker: Overall stable. Will monitor closely. CAD with prior CABG x1 vessel: Continue with aspirin. History of mechanical mitral valve replacement on Coumadin: Continue to hold Coumadin due to supratherapeutic INR. Patient was given vitamin K last night. Will monitor INR closely. Maintain INR between 2.5 and 3.5 due to his mitral valve. Will continue to hold Coumadin if Coumadin above 3.5. Encourage oral intake. Chronic anti coagulation therapy-Coumadin, supratherapeutic: As above Hyperlipidemia: Continue with his medication. Time Spent Managing Pts Care (In Minutes): 55
[2018-07-03] MEDS: CARVEDILOL 6.25 MG TAB PO SCH ×2 (08:50→20:18)
[2018-07-03] MEDS: GUAIFENESIN 600 MG SA TAB PO SCH ×2 (08:50→20:18)
[2018-07-03] MEDS ORDERED: NACHLORIDE 0.45% 1,000 ML IV SCH (09:00)
[2018-07-03] MEDS ORDERED: ASPIRIN EC 81 MG TAB PO SCH (09:00)
[2018-07-03] MEDS ORDERED: POTASSIUM 25 MEQ EFFERV TAB PO ONE (09:00)
[2018-07-03] MEDS ORDERED: Pharmacy Consult 1 EA XX PRN (09:33)
--- NOTE | 2018-07-03 09:35 | P.CNS ---
Date of Consult: 07/03/18 Primary Care Provider: Dr. Rodriges[place], [place] Chief Complaint: Pneumonia respiratory failure History of Present Illness: Patient is 83 years of age descended to the emergency room with cough congestion shortness of breath patient was visiting here quit smoking in the 60s he is very alert responsive cooperative on BiPAP breathing became worse diagnosed with pneumonia and was admitted here to the ICU. Patient is hemodynamically stable alert responsive cooperative and answered questions vital signs are so far stable significant cardiac history anticoagulation is therapeutic Allergies No Known Allergies Allergy (Verified 07/02/18 15:08) Home Medications: Atorvastatin Calcium [Lipitor] 20 mg PO BEDTIME 07/02/18 Carvedilol [Coreg] 6.25 mg PO BID 07/02/18 Warfarin Sodium [Coumadin] 5 mg PO DIRECTED 07/02/18 Warfarin Sodium [Coumadin] 7.5 mg PO DIRECTED 07/02/18 - Past Medical/Surgical History Diabetic: No -: Mitral valve replacement on Coumadin -: Atrial fibrillation with pacemaker -: CAD with prior CABG x1 vessel -: Hypertension -: Hyperlipidemia -: History of iliac abdominal aortic aneurysm stent -: CABG x1 vessel -: Stent to iliac for AAA -: Cholecystectomy -: Appendectomy -: Mitral valve replacement, mechanical Psychosocial/ Personal History: Patient is - Family History Father Medical History: Heart disease, Hypertension Mother Medical History: Heart disease, Hypertension, Diabetes Brother Medical History: Heart disease, Hypertension Sister Medical History: Heart disease, Hypertension, Lung disease - Social History Alcohol use: No CD- Drugs: No Caffeine use: No Place of Residence: Home Review of Systems General: Weakness Respiratory: Cough, Shortness of Breath Physical Examination Temp Pulse Resp BP Pulse Ox 97.3 F 60 15 149/77 H 98 07/03/18 08:42 07/03/18 08:50 07/03/18 08:42 07/03/18 08:50 07/03/18 08:42 General: Alert, Oriented x3, Moderate distress Respiratory: Crackles/rales (Crackles bilaterally) Cardiovascular: No edema, Normal S1 S2 Gastrointestinal: Normal bowel sounds, Soft and benign Laboratory Data (last 24 hrs) 07/02/18 09:17: PT 50.6 H, INR 4.55 H*, APTT 43.3 H 04/05/19 09:17: WBC 7.7, Hgb 12.2 L, Hct 35.7 L, Plt Count 179 07/02/18 09:17: Sodium 134 L, Potassium 4.2, BUN 37 H, Creatinine 1.19, Glucose 133 H, Total Bilirubin 2.1 H, AST 69 H, ALT 51, Alkaline Phosphatase 101, Lipase 97 - Problems (1) Respiratory failure Current Visit: Yes Status: Acute Plan: Patient is in respiratory failure secondary to bilateral pneumonia labs reviewed renal function is normal pro calcitonin is mildly elevated continue with Zosyn Dc IV fluids added vancomycin Lasix IV echocardiogram with Doppler cultures pending blood gases reviewed titrate sat to 90 95% Qualifiers: Chronicity: acute
[2018-07-03] MEDS: FUROSEMIDE 20 MG/ 2ML VIAL IV SCH ×2 (09:54→17:57)
[2018-07-03] MEDS ORDERED: VANCOMYCIN 2 GM in NA CHLORIDE 0.9% 500 ML IVPB ONE (10:00)
--- NOTE | 2018-07-03 10:31 | CON ---
History Of Present Illness: Mr. Carrasco is in the hospital for pneumonia. I am asked to see him diana shahid of abnormal EKGs and lung findings. Mr. Carrasco has a history of bypass surgery, history of a pacem keesha, not sure the exact times those were done, but apparently more than 10 years ago. I believe it was done when he lived in [place]. He had mitral valve replacement. He is on Coumadin. Chronic at [facility] with a pacemaker, one-vessel bypass done at the same time of his mitral valve replacement. His outpatient medications have been Coreg, atorvastatin, Coumadin, he takes 7.5 mg every other day, 5 mg every other day. Since he has been in the hospital, he has been treated with antibiotics. Ther e are lot of pulmonary findings and lot of fibrotic changes, but the radiologist seems to think there is infiltrate in the right middle lobe. Physical Examination: General: He is breathing via BiPAP. He is alert and able to have a conversation and talk. Lungs: Diffuse large and small airway sounds. I do not hear any egophony. Breath sounds are basica lly decreased everywhere. It is mostly bronchial type breath sounds. Laboratory Data: His INR was 4.55 yesterday, 6.59 today. He definitely should have an order to hold warfarin since the INR is more than 3.5. His prosthetic heart tones do not sound abnormal. His EKG and desk monitor show 100% paced rhythm with atrial fibrillation. His echo looks more like he had a mitral valve repair rather than a mitral valve replacement. It does not look like a mechanical prosthesis, but the anulus is very thick and consistent with repaired mitral valve. He has severe p ulmonary hypertension and mild to moderate aortic stenosis as well. His ejection fraction was normal . Impression: The patient should not be getting any Coumadin with his INR this high. I will make sure the orders are appropriate, so the nurses would hold Coumadin until the INR is below 3.5. I do not think we are dealing with endocarditis and it is a thought to keep in mind and his aortic stenosis is not severe enough to need a TAVR at this point. BRANDON/ULI Voice ID: [id number] Report ID: [id number]
[2018-07-03] MEDS: WARFARIN SODIUM 5 MG TAB PO SCH (11:28)
[2018-07-04] MEDS: PIPER/TAZO/NS 3.375gm 3.375 GM/100 ML BAG IVPB SCH ×4 (01:49→23:57)
[2018-07-04] MEDS: VANCOMYCIN 1.5 GM in NA CHLORIDE 0.9% 500 ML IVPB SCH ×2 (03:11→21:44)
[2018-07-04 05:36] LABS: Absolute Lymphocytes (CBC) 0.6 K/uL (0.7-4.9); Absolute Monocytes 1.1 K/uL (0.1-1.3); Absolute Neutrophil 11.7 K/uL (1.8-8.0); Basophils % 0.1 % (0-1.3); Hematocrit 35.7 % (39.6-49.0); Lymphocytes % 4.1 % (15.3-44.8); MPV 8.1 fL (7.6-11.3); Monocytes % 7.9 % (3.3-12.3); RBC Red Blood Cell Count 3.71 M/uL (4.33-5.43)
[2018-07-04 05:53] LABS: Magnesium 1.7 mg/dL (1.8-2.4); Potassium 3.2 mmol/L (3.5-5.1)
[2018-07-04 05:59] LABS: Protime INR 1.36
[2018-07-04] MEDS ORDERED: MAGNESIUM SULFATE 1 gm IVPB 1 GM/100 ML BAG IV ONE (08:00)
[2018-07-04] MEDS ORDERED: POTASSIUM 25 MEQ EFFERV TAB PO ONE ×2 (09:00→18:00)
--- NOTE | 2018-07-04 09:20 | P.PN ---
Subjective Date of Service: 07/04/18 Primary Care Provider: Dr. Rodriges-[place], [place] Chief Complaint: Pneumonia respiratory failure Subjective: Other (Patient shows improvement. Patient on nasal cannula this morning) Physical Examination - Vital Signs Temperature: 97 F Blood Pressure: 144/53 Pulse: 69 Respirations: 23 Pulse Ox (%): 95 - Physical Exam General: Alert, In no apparent distress, Oriented x3, Cooperative HEENT: Atraumatic Neck: Supple Respiratory: Other (Improved aeration bilateral) Cardiovascular: Normal pulses, Regular rate/rhythm Gastrointestinal: Normal bowel sounds, Soft and benign, Non-distended, No tenderness, No masses, No rebound, No guarding Musculoskeletal: No erythema, No tenderness, No warmth Integumentary: No erythema, No warmth, No cyanosis Neurological: Normal speech, Normal strength at 5/5 x4 extr, Normal tone, Normal affect - Studies Medications List Reviewed: Yes Assessment & Plan Discharge Plan: Home Plan to discharge in: 72 Hours Physician Review Additional Text: Impression: Acute respiratory failure with hypoxia secondary to right middle lobe and lower lobe pneumonia and possible sepsis Acute renal injury likely dehydration Chronic atrial fibrillation with pacemaker CAD with prior CABG x1 vessel History of mechanical mitral valve replacement on Coumadin Chronic anti coagulation therapy-Coumadin, supratherapeutic Hyperlipidemia Plan: Acute respiratory failure with hypoxia secondary to right middle lobe and lower lobe pneumonia and possible sepsis: Patient continues to improve. Respiratory added vancomycin yesterday. Pulmonology also discontinued IV fluids and provided Lasix. Patient now on nasal cannula. Continue to wean off. Will have physical therapy assess ambulation. Will consider transfer to the floor today. Will discuss with pulmonology 1st. Will recheck chest x-ray tomorrow. Await blood, sputum and urine culture results. Anticipate discharge in the next 48-72 hr. Patient is from out [facility]. I will turn the service over to the hospitalist team tomorrow. I will go over the plan of care with them. Acute renal injury likely dehydration: IV fluids discontinued by pulmonology. Patient given Lasix. Chronic atrial fibrillation with pacemaker: Continue to monitor closely. Patient was given vitamin K the other night. His INR is now subtherapeutic. Will start Lovenox at 1 milligram/kilogram subcu twice daily. Continue with Coumadin. Discontinue Lovenox once INR is above 2.5. CAD with prior CABG x1 vessel: Continue with aspirin. History of mechanical mitral valve replacement on Coumadin: INR now subtherapeutic as the patient was given vitamin K the other night. Will start Lovenox at 1 milligram/kilogram subcu twice daily. Continue with Coumadin. Discontinue Lovenox once INR is above 2.5. Continue due to adjust and monitor closely. Chronic anti coagulation therapy-Coumadin, supratherapeutic: As above Hyperlipidemia: Continue with his medication. Time Spent Managing Pts Care (In Minutes): 55
[2018-07-04] MEDS: FUROSEMIDE 20 MG/ 2ML VIAL IV SCH ×2 (10:06→16:37)
[2018-07-04] MEDS: GUAIFENESIN 600 MG SA TAB PO SCH ×2 (10:06→21:44)
[2018-07-04] MEDS: CARVEDILOL 6.25 MG TAB PO SCH ×2 (10:07→21:43)
[2018-07-04] MEDS: ENOXAPARIN 80 MG/0.8 ML SQ SCH ×2 (10:09→21:43)
--- NOTE | 2018-07-04 11:07 | PN ---
Mr. Carrasco seems to be doing better. His INR is subtherapeutic today. We should re-establish his Coumadin therapy along with with Lovenox today, then stop lovenox, but continue coumadin when his INR is above 2. He does not have a prosthetic valve, rather a repaired mitral valve and anulus ring with annuloplasty. He is in chronic atrial fibrillation and that is the indication for the Coumadin. The goal INR could be 2-3. His creatinine today is 0.96. Blood sugars are all good and overall he seems to be doing better. He needs to learn about sodium and fluid restriction, and [facility]. BRANDON/ULI Voice ID: [id number] Report ID: [id number] RD
[2018-07-04] MEDS: WARFARIN SODIUM 5 MG TAB PO SCH (16:37)
[2018-07-04] MEDS: BENZONATATE 100 MG CAP PO PRN (18:09)
[2018-07-05 04:18] LABS: Absolute Monocytes 1.1 K/uL (0.1-1.3); Absolute Neutrophil 9.8 K/uL (1.8-8.0); Basophils % 0.1 % (0-1.3); Eosinophils % 2.2 % (0-4.4); Hematocrit 32.1 % (39.6-49.0); Lymphocytes % 8.4 % (15.3-44.8); MPV 7.7 fL (7.6-11.3); Monocytes % 9.3 % (3.3-12.3); RBC Red Blood Cell Count 3.41 M/uL (4.33-5.43)
[2018-07-05 04:43] LABS: Protime INR 1.72
[2018-07-05 04:46] LABS: Magnesium 1.7 mg/dL (1.8-2.4); Potassium 3.2 mmol/L (3.5-5.1)
[2018-07-05 05:01] LABS: Blood Morphology Comment NOT SEEN (NOT SEEN); Platelet Estimate ADEQ; Toxic Granulation 1+; Urine White Blood Cell Casts OK
[2018-07-05] MEDS ORDERED: MAGNESIUM SULFATE 1 gm IVPB 1 GM/100 ML BAG IV ONE (05:55)
[2018-07-05] MEDS ORDERED: POTASSIUM CL SA 10 MEQ TAB PO ONE (05:56)
[2018-07-05] MEDS: BENZONATATE 100 MG CAP PO PRN (06:39)
--- NOTE | 2018-07-05 07:56 | RAD REPORT ---
EXAM DESCRIPTION: RAD - Chest Pa And Lat (2 Views) - 07/05/2018 6:33 am CLINICAL HISTORY: Pneumonia COMPARISON: July 03 TECHNIQUE: PA and lateral views of the chest were obtained. FINDINGS: The lungs are right upper lobe and right lung base infiltrates show a mild improvement fro m comparison. Left lung field shows better aeration as well. Overall lung volumes are improved. Small bilateral pleural effusions remain. Heart size remains prominent. Vasculature within normal limits . Patient has baseline interstitial fibrotic change. No pleural effusion or pneumothorax seen. No ac [place] bony finding noted. No aortic abnormality. IMPRESSION: Partial clearing of lung field infiltrates. Small pleural effusions remain.
[2018-07-05] MEDS: ENOXAPARIN 80 MG/0.8 ML SQ SCH ×2 (09:00→22:15)
[2018-07-05] MEDS: CARVEDILOL 6.25 MG TAB PO SCH ×2 (10:13→22:16)
[2018-07-05] MEDS: GUAIFENESIN 600 MG SA TAB PO SCH ×2 (10:15→22:16)
[2018-07-05] MEDS: PIPER/TAZO/NS 3.375gm 3.375 GM/100 ML BAG IVPB SCH (10:17)
[2018-07-05] MEDS: FUROSEMIDE 20 MG/ 2ML VIAL IV SCH ×2 (10:18→17:26)
--- NOTE | 2018-07-05 11:46 | P.PN ---
Subjective Date of Service: 07/05/18 Primary Care Provider: Dr. Rodriges-[place], [place] Chief Complaint: Pneumonia respiratory failure Subjective: Improving (Patient is doing better still coughing up copious amounts of productive sputum) Review of Systems General: Weakness Respiratory: Cough, Shortness of Breath Physical Examination - Vital Signs Temperature: 98.6 F Blood Pressure: 125/62 Pulse: 60 Respirations: 18 Pulse Ox (%): 92 - Physical Exam General: Alert, Oriented x3 Neck: Supple Respiratory: Clear to auscultation bilaterally Cardiovascular: No edema, Regular rate/rhythm - Studies Medications List Reviewed: Yes Assessment & Plan - Problems (Diagnosis) (1) Respiratory failure Current Visit: Yes Status: Resolved Plan: Patient is in respiratory failure secondary to bilateral pneumonia labs reviewed renal function is normal pro calcitonin is mildly elevated continue with Zosyn Dc IV fluids added vancomycin Lasix IV echocardiogram with Doppler cultures pending blood gases reviewed titrate sat to 90 95% Qualifiers: Chronicity: acute (2) Pneumonia Current Visit: Yes Status: Acute Plan: Patient is 83 years of age admitted with bilateral pneumonia he is doing better chest x-rays improving still little hypoxic quit smoking in the 1960s cultures are so far negative patient is on warfarin continue with Zosyn mildly hypokalemic white count is declining possible discharge home on a combination of cephalosporin and doxycycline Qualifiers: Pneumonia type: due to unspecified organism Laterality: bilateral Physician Review Additional Text: Impression: Acute respiratory failure with hypoxia secondary to right middle lobe and lower lobe pneumonia and possible sepsis Acute renal injury likely dehydration Chronic atrial fibrillation with pacemaker CAD with prior CABG x1 vessel History of mechanical mitral valve replacement on Coumadin Chronic anti coagulation therapy-Coumadin, supratherapeutic Hyperlipidemia Plan: Acute respiratory failure with hypoxia secondary to right middle lobe and lower lobe pneumonia and possible sepsis: Patient continues to improve. Respiratory added vancomycin yesterday. Pulmonology also discontinued IV fluids and provided Lasix. Patient now on nasal cannula. Continue to wean off. Will have physical therapy assess ambulation. Will consider transfer to the floor today. Will discuss with pulmonology 1st. Will recheck chest x-ray tomorrow. Await blood, sputum and urine culture results. Anticipate discharge in the next 48-72 hr. Patient is from out [facility]. I will turn the service over to the hospitalist team tomorrow. I will go over the plan of care with them. Acute renal injury likely dehydration: IV fluids discontinued by pulmonology. Patient given Lasix. Chronic atrial fibrillation with pacemaker: Continue to monitor closely. Patient was given vitamin K the other night. His INR is now subtherapeutic. Will start Lovenox at 1 milligram/kilogram subcu twice daily. Continue with Coumadin. Discontinue Lovenox once INR is above 2.5. CAD with prior CABG x1 vessel: Continue with aspirin. History of mechanical mitral valve replacement on Coumadin: INR now subtherapeutic as the patient was given vitamin K the other night. Will start Lovenox at 1 milligram/kilogram subcu twice daily. Continue with Coumadin. Discontinue Lovenox once INR is above 2.5. Continue due to adjust and monitor closely. Chronic anti coagulation therapy-Coumadin, supratherapeutic: As above Hyperlipidemia: Continue with his medication.
--- NOTE | 2018-07-05 12:27 | PN ---
Mr. Carrasco is out of ICU. Breathing better. His appetite is still poor. He is getting warfarin and Lovenox. His INR is 1.72. He will probably need Lovenox another day. I think he needs some nutriti on supplement. He is not eating any solid food at all. So, I will ask the nurses to give him Ensure or the supplement of choice. BRANDON/ULI Voice ID: [id number] Report ID: [id number]
--- NOTE | 2018-07-05 15:34 | P.PN ---
Subjective Date of Service: 07/05/18 Primary Care Provider: Dr. Rodriegs-[place], [place] Chief Complaint: Pneumonia respiratory failure Patient seen and examined at bedside with RN. Chart reviewed. Denies having fever, Chills, SOB and CP. Working with PT this AM. Weaned off the oxygen. Saturating 89-91% Review of Systems 10-point ROS is otherwise unremarkable Physical Examination - Vital Signs Temperature: 98.1 F Blood Pressure: 119/60 Pulse: 52 Respirations: 19 Pulse Ox (%): 100 - Physical Exam General: Alert, In no apparent distress Respiratory: Normal air movement, Expiratory wheezes Cardiovascular: Regular rate/rhythm, Normal S1 S2 Gastrointestinal: Normal bowel sounds, No tenderness Musculoskeletal: No tenderness Integumentary: No rashes Neurological: Normal speech, Normal tone, Normal affect Lymphatics: No axilla or inguinal lymphadenopathy - Studies Medications List Reviewed: Yes Assessment And Plan - Current Problems (Diagnosis) (1) Respiratory failure Current Visit: Yes Status: Resolved Plan: Acute respiratory failure with hypoxia secondary to right middle lobe and lower lobe pneumonia -Pulmonology consulted. appreciate Reccs -DC iv abx and started on PO doxycycline and cephalosporins -Weaned off the oxygen now and saturating well -Sputum Culture and blood culture negative thus far. -If improvement then DC in next 24 to 48hrs Qualifiers: Chronicity: acute (2) Pneumonia Current Visit: Yes Status: Acute Plan: BL lobe PNA -Now with improvement -Sputum culture and blood culture negative thus far -On IV cephalo and Doxycycline Qualifiers: Pneumonia type: due to unspecified organism Laterality: bilateral (3) Acute kidney injury Current Visit: Yes Status: Acute Plan: Acute renal injury likely dehydration vs Infection -BUN.CR improved today. (4) CAD (coronary artery disease) Current Visit: Yes Status: Chronic Qualifiers: Coronary Disease-Associated Artery/Lesion type: [place] artery [place] vs. transplanted heart: [place] heart Associated angina: without angina Qualified Code(s): I25.10 - Atherosclerotic heart disease of [place] coronary artery without angina pectoris (5) Afib Current Visit: Yes Status: Chronic Plan: Chronic atrial fibrillation with pacemaker -Restart on Home medication -BB and anticoagulation with warfarin Qualifiers: Atrial fibrillation type: chronic Qualified Code(s): I48.2 - Chronic atrial fibrillation (6) H/O mitral valve repair Current Visit: Yes Status: Chronic - Plan Pending clinical Improvement. Continue with PO abx. F.u with PT/INR valeriy AM Discharge Plan: Home Plan to discharge in: 48 Hours - Code Status/Comfort Care Code Status Assessed: Yes Critical Care: No
[2018-07-05] MEDS: WARFARIN SODIUM 5 MG TAB PO SCH (17:26)
[2018-07-05] MEDS ORDERED: POTASSIUM 25 MEQ EFFERV TAB PO ONE (18:33)
[2018-07-05] MEDS: ENSURE ENLIVE 237 ML CAN PO SCH (21:00)
[2018-07-05] MEDS: CEFUROXIME 250 MG TAB PO SCH (22:16)
[2018-07-05] MEDS: DOXYCYCLINE 100 MG CAP PO SCH (22:16)
[2018-07-06 04:34] LABS: Absolute Lymphocytes (CBC) 1.1 K/uL (0.7-4.9); Absolute Monocytes 1.2 K/uL (0.1-1.3); Absolute Neutrophil 8.8 K/uL (1.8-8.0); Basophils % 0.3 % (0-1.3); Eosinophils % 2.6 % (0-4.4); Hematocrit 33.7 % (39.6-49.0); Lymphocytes % 9.8 % (15.3-44.8); MPV 7.6 fL (7.6-11.3); Monocytes % 10.4 % (3.3-12.3); RBC Red Blood Cell Count 3.54 M/uL (4.33-5.43)
[2018-07-06 04:35] LABS: Protime INR 2.15
[2018-07-06 04:50] LABS: Magnesium 1.7 mg/dL (1.8-2.4); Potassium 3.4 mmol/L (3.5-5.1)
[2018-07-06] MEDS ORDERED: POTASSIUM 25 MEQ EFFERV TAB PO ONE (06:00)
[2018-07-06] MEDS ORDERED: MAGNESIUM SULFATE 1 gm IVPB 1 GM/100 ML BAG IV ONE (06:00)
[2018-07-06] MEDS: CARVEDILOL 6.25 MG TAB PO SCH ×2 (08:35→20:27)
[2018-07-06] MEDS: GUAIFENESIN 600 MG SA TAB PO SCH ×2 (08:35→20:28)
[2018-07-06] MEDS: DOXYCYCLINE 100 MG CAP PO SCH ×2 (08:35→20:27)
[2018-07-06] MEDS: CEFUROXIME 250 MG TAB PO SCH ×2 (08:36→20:27)
[2018-07-06] MEDS: ENSURE ENLIVE 237 ML CAN PO SCH ×3 (08:36→20:28)
[2018-07-06] MEDS: FUROSEMIDE 20 MG/ 2ML VIAL IV SCH (09:00)
--- NOTE | 2018-07-06 11:28 | EKG ---
Test Date: 2018-07-02 Test Time: 09:08:46 Third Mate: ADELE MEASUREMENT RESULTS: Intervals: Rate: 60 CO: QRSD: 136 QT: 432 QTc: 432 Peridot: P: CO: QRS: -32 T: 75 INTERPRETIVE STATEMENTS: Electronic ventricular pacemaker Compared to ECG 11/07/2009 08:25:04 No significant changes Electronically Signed On 07-02-18 18:24:17 CDT by Lance Kirk
--- NOTE | 2018-07-06 14:39 | P.PN ---
Subjective Date of Service: 07/06/18 Primary Care Provider: Dr. Rodriges-[place], [place] Chief Complaint: Pneumonia respiratory failure Patient seen and examined at bedside with RN. Chart reviewed. Denies having fever, Chills, SOB and CP. Working with PT this AM. Weaned off the oxygen. Saturating 89-91%. This morning c/o having non bloody diarrhea x 2. Review of Systems 10-point ROS is otherwise unremarkable Physical Examination - Vital Signs Temperature: 99.5 F Blood Pressure: 108/58 Pulse: 60 Respirations: 18 Pulse Ox (%): 90 - Physical Exam General: Alert, In no apparent distress HEENT: Atraumatic, PERRLA, EOMI Neck: Supple, JVD not distended Respiratory: Clear to auscultation bilaterally, Normal air movement Cardiovascular: Regular rate/rhythm, Normal S1 S2 Gastrointestinal: Normal bowel sounds, No tenderness Musculoskeletal: No tenderness Integumentary: No rashes Neurological: Normal speech, Normal tone, Normal affect Lymphatics: No axilla or inguinal lymphadenopathy - Studies Medications List Reviewed: Yes Assessment And Plan - Current Problems (Diagnosis) (1) Respiratory failure Current Visit: Yes Status: Resolved Plan: Acute respiratory failure with hypoxia secondary to right middle lobe and lower lobe pneumonia -Pulmonology consulted. appreciate Reccs -On PO doxycycline and cephalosporins -Weaned off the oxygen now and saturating well -Sputum Culture and blood culture negative thus far. -Lab work WNL, except elevated CO2 on the BMP -If improvement then DC in next 24 to 48hrs Qualifiers: Chronicity: acute (2) Pneumonia Current Visit: Yes Status: Acute Plan: BL lobe PNA -Now with improvement -Sputum culture and blood culture negative thus far -On PO cephalo and Doxycycline Qualifiers: Pneumonia type: due to unspecified organism Laterality: bilateral Lung location: unspecified part of lung Qualified Code(s): J18.9 - Pneumonia, unspecified organism (3) Acute kidney injury Current Visit: Yes Status: Acute Plan: Acute renal injury likely dehydration vs Infection -BUN.CR improved today. (4) CAD (coronary artery disease) Current Visit: Yes Status: Chronic Qualifiers: Coronary Disease-Associated Artery/Lesion type: [place] artery [place] vs. transplanted heart: [place] heart Associated angina: without angina Qualified Code(s): I25.10 - Atherosclerotic heart disease of [place] coronary artery without angina pectoris (5) Afib Current Visit: Yes Status: Chronic Plan: Chronic atrial fibrillation with pacemaker -Restart on Home medication -BB and anticoagulation with warfarin -INR therapeutic Now Qualifiers: Atrial fibrillation type: chronic Qualified Code(s): I48.2 - Chronic atrial fibrillation (6) H/O mitral valve repair Current Visit: Yes Status: Chronic - Plan Pending clinical Improvement. Continue with PO abx. Work with PT/OT here. Repeat BMP valeriy and if improvement then DC home Discharge Plan: Home Plan to discharge in: Greater than 2 days - Code Status/Comfort Care Code Status Assessed: Yes Critical Care: No
[2018-07-06] MEDS ORDERED: POTASSIUM 25 MEQ EFFERV TAB PO SCH (16:00)
[2018-07-06] MEDS: FUROSEMIDE 20 MG TABLET PO SCH (16:22)
[2018-07-06] MEDS: WARFARIN SODIUM 5 MG TAB PO SCH (16:22)
[2018-07-07 04:40] LABS: Absolute Lymphocytes (CBC) 1.1 K/uL (0.7-4.9); Absolute Monocytes 0.9 K/uL (0.1-1.3); Absolute Neutrophil 7.8 K/uL (1.8-8.0); Basophils % 0.2 % (0-1.3); Eosinophils % 3.1 % (0-4.4); Hematocrit 31.5 % (39.6-49.0); Lymphocytes % 10.4 % (15.3-44.8); MPV 7.4 fL (7.6-11.3); Monocytes % 9.1 % (3.3-12.3)
[2018-07-07 04:46] LABS: Potassium 3.9 mmol/L (3.5-5.1)
[2018-07-07 05:01] LABS: Protime INR 2.56
[2018-07-07] MEDS ORDERED: POTASSIUM 25 MEQ EFFERV TAB PO ONE (06:35)
[2018-07-07] MEDS: FUROSEMIDE 20 MG TABLET PO SCH (08:14)
[2018-07-07] MEDS: GUAIFENESIN 600 MG SA TAB PO SCH (08:14)
[2018-07-07] MEDS: DOXYCYCLINE 100 MG CAP PO SCH (08:14)
[2018-07-07] MEDS: CARVEDILOL 6.25 MG TAB PO SCH (08:15)
[2018-07-07] MEDS: CEFUROXIME 250 MG TAB PO SCH (08:16)
[2018-07-07] MEDS: ENSURE ENLIVE 237 ML CAN PO SCH (08:17)
--- NOTE | 2018-07-07 16:48 | P.DS ---
Admission Date: 07/02/18 Discharge Date: 07/07/18 Primary Care Provider: Dr. [place], [place] Disposition: ROUTINE DISCHARGE Discharge Condition: GOOD Reason for Admission: Pneumonia respiratory failure - Problems (1) Respiratory failure Status: Resolved Qualifiers: Chronicity: acute (2) Pneumonia Status: Acute Qualifiers: Pneumonia type: due to unspecified organism Laterality: bilateral Lung location: unspecified part of lung Qualified Code(s): J18.9 - Pneumonia, unspecified organism (3) Acute kidney injury Status: Acute (4) CAD (coronary artery disease) Status: Chronic Qualifiers: Coronary Disease-Associated Artery/Lesion type: [place] artery [place] vs. transplanted heart: [place] heart Associated angina: without angina Qualified Code(s): I25.10 - Atherosclerotic heart disease of [place] coronary artery without angina pectoris (5) Afib Status: Chronic Qualifiers: Atrial fibrillation type: chronic Qualified Code(s): I48.2 - Chronic atrial fibrillation (6) H/O mitral valve repair Status: Chronic (7) Sepsis Status: Acute Brief History of Present Illness: 3-year-old male presented to the emergency room with increased cough, congestion and shortness of breath. Patient is originally from [place]. He is here to visit family. Over the past week patient has been having increasing cough, congestion and fatigue. He has had poor oral intake. has noted some altered mental status changes. Today his shortness of breath got worse. He was brought in for further evaluation. Patient with prior history of mitral valve replacement on Coumadin, atrial fibrillation with pacemaker, CAD with prior CABG x1 vessel, hyperlipidemia. In the ER patient was in severe respiratory distress. Patient required immediate BiPAP. Patient given IV fluids. Patient with mild elevation in temperature. White count 7.7, hemoglobin 12. Lactic acid and pro calcitonin elevated. Troponin within normal range. Sodium 134, potassium 4.2, BUN of 37, creatinine 1.19 with a GFR 58. Glucose 133. Chest x-ray showed right middle and lower lobe pneumonia. Patient was admitted to ICU for further evaluation and treatment. When I saw the patient in the ER, he remained stable on BiPAP. He appeared improved with treatment. Patient appears compliant with his medication. Patient with multiple cardiac risk factors. Hospital Course: Overall treating the hospital stay patient main stable Patient tissue admitted to the hospital for acute respiratory failure and sepsis. Patient initially presented to the ED with cough congestion and increased shortness of breath was found to be in acute respiratory failure. Lab work and imaging were done patient was started on BiPAP in the ER along with IV antibiotics for possible pneumonia on the chest x-ray. Patient was also started on treatment for sepsis with possible source of infection being pneumonia. Patient did well overall in the 1st 24 hr while here in the hospital. Pulmonology was consulted who recommended the patient be continued on broad spectrum antibiotic infusion culture and blood culture be collected. Sputum culture and blood culture were collected while here in the hospital. Both of which were negative on the day of discharge today. Patient was then switched over to oral antibiotics when he had marked improvement and he was weaned off of BiPAP. Patient was switched over to cephalosporin along with doxycycline and was on 2 L of nasal cannula. Physical therapy and occupational therapy was consulted at that time and patient was evaluated for rehab. Patient did well markedly here in the hospital. Patient was weaned off of oxygen as well and was saturating at 95-96% on room air at rest. Patient was also saturating 90-93% with ambulation. Patient at that time was discharged home on oral antibiotics and was asked to follow up with primary care doctor once he returns back to [facility]. Patient demonstrated understanding and thus was discharged home under stable condition. Patient was asked to continue taking his antibiotics cephalosporin doxycycline for another 10 days and was asked to also continue taking is inhalers and steroids. Vital Signs/Physical Exam: Temp Pulse Resp BP Pulse Ox 98.4 F 60 18 123/59 L 93 07/07/18 12:00 07/07/18 12:00 07/07/18 12:00 07/07/18 12:00 07/07/18 12:00 General: Alert, In no apparent distress HEENT: Atraumatic, PERRLA, EOMI Neck: Supple, JVD not distended Respiratory: Clear to auscultation bilaterally, Normal air movement Cardiovascular: Regular rate/rhythm, Normal S1 S2 Gastrointestinal: Normal bowel sounds, No tenderness Musculoskeletal: No tenderness Integumentary: No rashes Neurological: Normal speech, Normal tone, Normal affect Lymphatics: No axilla or inguinal lymphadenopathy Laboratory Data at Discharge: WBC 10.1 K/uL (4.3-10.9) 07/07/18 03:52 Hgb 10.7 g/dL (13.6-17.9) L 07/07/18 03:52 Hct 31.5 % (39.6-49.0) L 07/07/18 03:52 Plt Count 255 K/uL (152-406) 07/07/18 03:52 PT 29.1 SECONDS (9.5-12.5) H 07/07/18 03:52 INR 2.56 07/07/18 03:52 APTT 43.3 SECONDS (24.3-36.9) H 07/02/18 09:17 Sodium 140 mmol/L (136-145) 07/07/18 03:52 Potassium 3.9 mmol/L (3.5-5.1) 07/07/18 03:52 BUN 28 mg/dL (7-18) H 07/07/18 03:52 Creatinine 0.92 mg/dL (0.55-1.3) 07/07/18 03:52 Glucose 99 mg/dL (74-106) 07/07/18 03:52 Magnesium 2.0 mg/dL (1.8-2.4) 07/07/18 03:52 Total Bilirubin 2.1 mg/dL (0.2-1.0) H 07/02/18 09:17 AST 69 U/L (15-37) H 07/02/18 09:17 ALT 51 U/L (12-78) 07/02/18 09:17 Alkaline Phosphatase 101 U/L (45-117) 07/02/18 09:17 Troponin I 0.03 ng/mL (0.0-0.045) 07/03/18 01:13 Triglycerides 72 mg/dL (<150) 07/03/18 05:12 Cholesterol 62 mg/dL (<200) 07/03/18 05:12 HDL Cholesterol 22 mg/dL (40-60) L 07/03/18 05:12 Cholesterol/HDL Ratio 2.82 07/03/18 05:12 Lipase 97 U/L (73-393) 07/02/18 09:17 Home Medications: Atorvastatin Calcium [Lipitor*] 20 mg PO BEDTIME 07/02/18 Carvedilol [Coreg*] 6.25 mg PO BID #60 tab 07/07/18 Cefuroxime [Ceftin*] 500 mg PO BID #14 tab 07/07/18 Furosemide [Lasix*] 20 mg PO BIDL #60 tab 07/07/18 Warfarin Sodium [Coumadin*] 5 mg PO DAILY 5 PM #30 tab 07/07/18 New Medications: Carvedilol [Coreg*] 6.25 mg PO BID #60 tab Cefuroxime [Ceftin*] 500 mg PO BID #14 tab Furosemide [Lasix*] 20 mg PO BIDL #60 tab Warfarin Sodium [Coumadin*] 5 mg PO DAILY 5 PM #30 tab Patient Discharge Instructions: Please f.u with Pulmonology 1 to 2 week post discharge. New Medication. Cefuroxime and Doxycycline Diet: Regular Activity: Ad carla Followup: Jay Georges MD [ACTIVE - CAN ADMIT] -
== END 2018-07-07 14:30 | disposition home or self-care (01) | DRG 871 ==
LOC: ER 08:46 → ERHOLD 10:38 → 3RD-ICU 13:49 → 4TH 07-04 14:10
PROVIDERS: ADMIT Family Medicine; ATTEND Family Medicine
PROC: 5A09457 Assistance with Respiratory Ventilation, 24-96 Consecutive Hours, Continuous Positive Airway Pressure (ICD-10-PCS; principal; 2018-07-02)
DX: A41.9 Sepsis, unspecified organism (principal); J18.1 Lobar pneumonia, unspecified organism; J96.01 Acute respiratory failure with hypoxia; N17.9 Acute kidney failure, unspecified; R65.20 Severe sepsis without septic shock; I25.10 Atherosclerotic heart disease of native coronary artery without angina pectoris; I48.2 Chronic atrial fibrillation; Z79.01 Long term (current) use of anticoagulants; Z95.2 Presence of prosthetic heart valve; Z95.0 Presence of cardiac pacemaker; Z95.1 Presence of aortocoronary bypass graft; E78.5 Hyperlipidemia, unspecified; E86.0 Dehydration; I35.0 Nonrheumatic aortic (valve) stenosis; Z87.891 Personal history of nicotine dependence; E87.6 Hypokalemia
CPT/HCPCS: 36415; 71045; 71046; 80048; 80061; 80076; 80202; 81003; 81015; 82550; 82553; 82805; 82962; 83605; 83690; 83735; 84132; 84145; 84439; 84443; 84484; 85025; 85610; 85730; 87040; 87070; 87086; 87088; 87205; 93005; 93306; 94660; 96374; 96375; 97116; 97163; 99284; J1650; J1940; J2543; J3430; J3475; J7030